=== PATIENT | male | born 1960 | race Caucasian/White ===

== ENCOUNTER 2024-04-22 09:23 | Emergency (ER) | payer OTHER ==
[~2024-04-22] VITALS: Ht 182.9 cm; Wt 115.2 kg
[2024-04-22 09:46] VITALS: BP 142/73; PULSE 83; RESP 16; TEMP 97.5; O2SAT 98
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
[2024-04-22] MEDS: HYDROcodone-ACET 10/325MG TAB PO ONE (10:41)
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
== END 2024-04-22 11:14 | disposition home or self-care (01) ==
LOC: ER 09:23
DX: S22.32XA Fracture of one rib, left side, initial encounter for closed fracture (principal); R91.1 Solitary pulmonary nodule; V43.52XA Car driver injured in collision with other type car in traffic accident, initial encounter; Y93.89 Activity, other specified; Y92.488 Other paved roadways as the place of occurrence of the external cause; Y99.8 Other external cause status
CPT/HCPCS: 71250